=== PATIENT | female | born 1960 | race Caucasian/White ===

== ENCOUNTER 2018-10-13 09:24 | Outpatient (CLI) | payer OTHER ==
--- NOTE | 2018-10-28 11:03 | MMO ---
BILATERAL SCREENING MAMMOGRAM: Date: 10/13/18 HISTORY: 58-year-old female. Routine screening mammography. COMPARISON: 06/09/12, 08/11/13, 10/30/14. TECHNIQUE: CC and MLO views of both breasts are submitted for interpretation. This patient's mammogram was reviewed with the assistance of computer-aided detection. FINDINGS: The breasts are composed of scattered fibroglandular tissue. Bilaterally, no suspicious dominant mass , architectural distortion, or suspicious calcifications. Benign-appearing calcifications in the left breast. IMPRESSION: BIRADS 2: Benign Finding(s) RECOMMENDATION: Annual mammogram. POS: [facility]
== END 2018-10-13 09:25 | disposition home or self-care (01) ==
LOC: SCSMAMMO 09:24
PROVIDERS: ATTEND Family Medicine
DX: Z12.31 Encounter for screening mammogram for malignant neoplasm of breast (principal)
CPT/HCPCS: 77067